=== PATIENT | female | born 2000 | race Caucasian/White ===

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

== ENCOUNTER 2020-08-31 02:06 | Inpatient (IN) ==
[2020-08-31] MEDS ORDERED: Naloxone 0.4 MG/ML INJ IVP PRN (02:30)
[2020-08-31] MEDS ORDERED: Lidocaine 1% 20 ML MDV INFILT PRN (02:30)
[2020-08-31] MEDS ORDERED: Ondansetron 4 MG/2 ML VIAL IVP PRN (02:30)
[2020-08-31] MEDS ORDERED: Metoclopramide 10 MG/2 ML VIAL IVP PRN (02:30)
[2020-08-31] MEDS ORDERED: Ringers Solution, Lactated 1,000 ML IVC SCH (02:30)
[2020-08-31] MEDS ORDERED: *HR* FentaNYL (PF) 100 MCG/2 ML VIAL IVP PRN (02:30)
[2020-08-31] MEDS ORDERED: Famotidine 20 MG/2 ML VIAL IVP PRN (02:30)
[2020-08-31 02:45] LABS: Basophils # 0.1 K/mcL (0.0-0.2); Basophils % 0.7 %; Eosinophils # 0.4 K/mcL (0.0-0.6); Hematocrit 37.1 % (35.3-44.9); Hemoglobin 11.9 g/dL (11.5-15.4); Lymphocytes # 5.7 K/mcL (0.6-4.6); Lymphocytes % 29.3 %; Mean Corpuscular HGB Conc 32.1 g/dL (31.6-35.5); Mean Platelet Volume 10.1 fL (9.4-12.4); Monocytes # 1.4 K/mcL (0.0-1.3); Monocytes % 7.2 %; Neutrophils # 11.6 K/mcL (1.6-8.9); Nucleated Red Blood Cells 0.2 /100 WBC (0); Platelet Count 380 K/mcL (140-400); Red Blood Count 4.58 M/mcL (3.82-4.97); Red Cell Distribution Width 14.8 % (11.5-14.5); Segmented Neutrophils % 59.8 %; White Blood Count 19.4 K/mcL (4.3-11.1)
[2020-08-31 02:57] LABS: Amphetamine Screen,Urine Negative ng/mL (Cutoff=1000); Barbiturate Screen,Urine Negative ng/mL (Cutoff=200); Benzodiazepines Screen,Urine Negative ng/mL (Cutoff=200); Cannabinoid Screen,Urine Negative ng/mL (Cutoff = 50); Cocaine Screen,Urine Negative ng/mL (Cutoff= 300); Opiate Screen,Urine Negative ng/mL (Cutoff=300); Phencyclidine Screen,Urine Negative ng/mL (Cutoff=25)
[2020-08-31 03:05] LABS: Platelet Estimate Normal (Normal); Reactive Lymphocytes Present (Not Present)
[2020-08-31] MEDS ORDERED: *HR* FentaNYL (PF) 100 MCG/2 ML VIAL EP ONE (03:17)
[2020-08-31] MEDS ORDERED: EPHEDrine 50 MG/ML VIAL IVP PRN (03:17)
[2020-08-31] MEDS ORDERED: Ropivacaine/PF 0.2% 20 ML VIAL EP ONE (03:17)
[2020-08-31] MEDS ORDERED: Ropivacaine/PF 0.2% 20 ML VIAL ONE (03:20)
[2020-08-31] MEDS ORDERED: *HR* FentaNYL (PF) 100 MCG/2 ML VIAL ONE (03:20)
[2020-08-31] MEDS: Epidural Premix (fent/bupiv) 110 ML EP SCH ×2 (03:58→10:35)
[2020-08-31 05:25] LABS: Alanine Aminotransferase 9 Units/L (7-52); Aspartate Amino Transferase 13 Units/L (13-39); BUN/Creatinine Ratio 17 (6-26); Blood Urea Nitrogen 8 mg/dL (6-20); Lactate Dehydrogenase 137 Units/L (140-271); Uric Acid 4.3 mg/dL (2.3-7.6); eGFR For African Americans > 60; eGFR For Non-African Americans > 60
[2020-08-31] MEDS ORDERED: Penicillin G Potassium 5,000,000 UNIT in 0.9 % Sodium Chloride Mini Bag 100 ML IVPB ONE (05:29)
[2020-08-31 05:53] LABS: Creatinine,Urine 10 mg/dL
[2020-08-31] MEDS ORDERED: Oxytocin 20 units/ LR 1000 mL 20 UNIT/1,000 ML BAG IVC SCH ×2 (08:45→15:25)
[2020-08-31] MEDS ORDERED: Penicillin G Potassium 2,500,000 UNIT in 0.9 % Sodium Chloride 100 ML IVPB SCH (10:00)
[2020-08-31] MEDS ORDERED: Acetaminophen 325 MG TABLET PO PRN (15:25)
[2020-08-31] MEDS ORDERED: Measles/Mumps/Rubella Vacc 0.5 ML VIAL SQ PRN (15:25)
[2020-08-31] MEDS ORDERED: Ibuprofen 600 MG TABLET PO PRN (15:25)
[2020-09-01 07:38] LABS: Hematocrit 35.8 % (35.3-44.9); Mean Corpuscular HGB Conc 30.7 g/dL (31.6-35.5); Mean Corpuscular Hemoglobin 25.5 pg (28.0-33.3); Mean Corpuscular Volume 83.1 fL (83.0-100.0); Mean Platelet Volume 10.3 fL (9.4-12.4); Nucleated Red Blood Cells 0.1 /100 WBC (0); Platelet Count 363 K/mcL (140-400); Red Blood Count 4.31 M/mcL (3.82-4.97); Red Cell Distribution Width 15.2 % (11.5-14.5)
[2020-09-01 08:08] VITALS: BP 122/79
[2020-09-01 08:30] LABS: Eosinophils # 0.7 K/mcL (0.0-0.6); Lymphocytes # 5.4 K/mcL (0.6-4.6); Monocytes # 0.7 K/mcL (0.0-1.3); Neutrophils # 10.2 K/mcL (1.6-8.9)
[2020-09-01 08:31] LABS: Anisocytosis 1+ (Not Present); Platelet Estimate Normal (Normal)
[2020-09-01] MEDS ORDERED: Prenatal Vit/FA 1 EACH TABLET PO SCH (09:00)
== END 2020-09-01 14:32 | disposition home or self-care (01) | DRG 560 ==
LOC: 1NENULAB → OBSVTOIN 02:06 → 1NENULAB 03:25 → 1NENUOBS 14:34
PROVIDERS: ADMIT Obstetrics & Gynecology; ATTEND Obstetrics & Gynecology

== ENCOUNTER 2021-11-30 04:00 | Inpatient (IN) ==
[2021-11-30] MEDS ORDERED: Metoclopramide 10 MG/2 ML VIAL IVP PRN (04:13)
[2021-11-30] MEDS ORDERED: Famotidine 20 MG/2 ML VIAL IVP PRN (04:13)
[2021-11-30] MEDS ORDERED: *HR* Nalbuphine 10 MG/ML AMPUL IV PRN (04:13)
[2021-11-30] MEDS ORDERED: Naloxone 0.4 MG/ML INJ IVP PRN (04:13)
[2021-11-30] MEDS ORDERED: Lidocaine 1% 20 ML MDV INFILT PRN (04:13)
[2021-11-30] MEDS ORDERED: Ringers Solution, Lactated 1,000 ML IVC SCH (04:15)
[2021-11-30] MEDS ORDERED: Oxytocin 20 units/ LR 1000 mL 20 UNIT/1,000 ML BAG IVC SCH ×2 (04:15→14:20)
[2021-11-30 05:14] LABS: Basophils # 0.1 K/mcL (0.0-0.2); Basophils % 0.6 %; Eosinophils # 0.3 K/mcL (0.0-0.6); Eosinophils % 1.7 %; Hemoglobin 11.5 g/dL (11.5-15.4); Immature Granulocytes % 0.9 % (0-4); Lymphocytes # 5.6 K/mcL (0.6-4.6); Mean Corpuscular HGB Conc 31.1 g/dL (31.6-35.5); Mean Corpuscular Hemoglobin 25.4 pg (28.0-33.3); Mean Corpuscular Volume 81.9 fL (83.0-100.0); Mean Platelet Volume 10.4 fL (9.4-12.4); Monocytes # 1.1 K/mcL (0.0-1.3); Monocytes % 5.5 %; Nucleated Red Blood Cells 0.2 /100 WBC (0); Platelet Count 421 K/mcL (140-400); Red Blood Count 4.52 M/mcL (3.82-4.97); Red Cell Distribution Width 15.4 % (11.5-14.5); Segmented Neutrophils % 62.3 %; White Blood Count 19.2 K/mcL (4.3-11.1)
[2021-11-30 05:28] LABS: Amphetamine Screen,Urine Negative ng/mL (Cutoff=1000); Barbiturate Screen,Urine Negative ng/mL (Cutoff=200); Benzodiazepines Screen,Urine Negative ng/mL (Cutoff=200); Cannabinoid Screen,Urine Negative ng/mL (Cutoff = 50); Cocaine Screen,Urine Negative ng/mL (Cutoff= 300); Opiate Screen,Urine Negative ng/mL (Cutoff=300); Phencyclidine Screen,Urine Negative ng/mL (Cutoff=25)
[2021-11-30 05:32] LABS: Platelet Estimate Normal (Normal); Reactive Lymphocytes Present (Not Present)
[2021-11-30 05:56] LABS: Influenza A PCR Negative (Negative); Influenza B PCR Negative (Negative); Resp. Syncytial Virus PCR Negative (Negative)
[2021-11-30 05:58] LABS: SARS-CoV-2 by PCR (In House) Negative (Negative)
[2021-11-30 06:00] LABS: Creatinine,Urine 71 mg/dL; Protein/Creatinine Ratio,Urine 0.16 mg/mg (0.00-0.20)
[2021-11-30] MEDS ORDERED: EPHEDrine 50 MG/ML VIAL IVP PRN (06:22)
[2021-11-30] MEDS ORDERED: Epidural Premix (fent/bupiv) 110 ML EP SCH (06:30)
[2021-11-30] MEDS ORDERED: *HR* FentaNYL (PF) 100 MCG/2 ML VIAL EP ONE (07:06)
[2021-11-30] MEDS ORDERED: Ropivacaine/PF 0.2% 20 ML VIAL EP ONE (07:06)
[2021-11-30] MEDS ORDERED: *HR* FentaNYL (PF) 100 MCG/2 ML VIAL ONE (07:21)
[2021-11-30] MEDS ORDERED: Ropivacaine/PF 0.2% 20 ML VIAL ONE (07:21)
[2021-11-30] MEDS ORDERED: *HR* Ropivacaine/PF 0.5% 20 ML VIAL ONE (11:51)
[2021-11-30] MEDS ORDERED: Benzocaine/Menthol 56 GM AEROSOL SPRAY TP PRN (14:20)
[2021-11-30] MEDS ORDERED: Lanolin 7 G OINT...G. TP PRN (14:20)
[2021-11-30] MEDS ORDERED: Ondansetron ODT 4 MG TAB.RAPDIS SL PRN (14:20)
[2021-11-30] MEDS ORDERED: Measles/Mumps/Rubella Vacc 0.5 ML VIAL SQ PRN (14:20)
[2021-11-30] MEDS ORDERED: Rho Immune Globulin 1,500 UNIT SYRINGE IM PRN (14:20)
[2021-11-30] MEDS ORDERED: Oxytocin 20 units/ LR 1000 mL 20 UNIT/1,000 ML BAG IVC ONE (14:20)
[2021-11-30] MEDS: Acetaminophen 325 MG TABLET PO SCH (15:44)
[2021-11-30] MEDS: Ibuprofen 600 MG TABLET PO SCH (15:44)
[2021-12-01 04:45] VITALS: O2SAT 98
[2021-12-01 05:32] LABS: Hematocrit 35.1 % (35.3-44.9); Hemoglobin 10.9 g/dL (11.5-15.4); Mean Corpuscular HGB Conc 31.1 g/dL (31.6-35.5); Mean Corpuscular Hemoglobin 25.5 pg (28.0-33.3); Mean Corpuscular Volume 82.2 fL (83.0-100.0); Mean Platelet Volume 10.2 fL (9.4-12.4); Nucleated Red Blood Cells 0.1 /100 WBC (0); Platelet Count 367 K/mcL (140-400); Red Blood Count 4.27 M/mcL (3.82-4.97); Red Cell Distribution Width 15.4 % (11.5-14.5); White Blood Count 16.3 K/mcL (4.3-11.1)
[2021-12-01 07:07] VITALS: BP 108/68; PULSE 72; TEMP 97.7
[2021-12-01 07:40] LABS: Lymphocytes # 7.2 K/mcL (0.6-4.6); Neutrophils # 9.1 K/mcL (1.6-8.9)
[2021-12-01 07:41] LABS: Anisocytosis 1+ (Not Present); Stomatocytes 1+ (Not Present)
[2021-12-01 07:48] LABS: Platelet Estimate Normal (Normal); Reactive Lymphocytes Present (Not Present)
[2021-12-01] MEDS: Ibuprofen 600 MG TABLET PO SCH (08:15)
[2021-12-01] MEDS: Acetaminophen 325 MG TABLET PO SCH (08:15)
[2021-12-01] MEDS ORDERED: Prenatal Vit/FA 1 EACH TABLET PO SCH (09:00)
== END 2021-12-01 15:13 | disposition home or self-care (01) | DRG 560 ==
LOC: 1NENULAB 04:00 → 1NENUOBS 14:13
PROVIDERS: ADMIT Student in an Organized Health Care Education/Training Program; ATTEND Student in an Organized Health Care Education/Training Program